=== PATIENT | male | born 1950 | race Caucasian/White ===

== ENCOUNTER 2016-07-13 18:18 | Emergency (ER) | payer OTHER ==
[~2016-07-13] VITALS: Wt 86.2 kg
[~2016-07-13 18:18] MED LIST: ALLOPURINOL100 MG PO; APRESOLINE25 MG PO; BAYER ASPIRIN C81 MG PO; CARDIZEM CD300 MG PO; CARTIA XT300 MG PO; DIOVAN/HCT 12.51 TAB PO; FENOFIBRATE145 M1 PO; HYTRIN5 M1 PO; LOPID600 MG PO; METFORMIN500 MG PO; PRAVACHOL20 MG PO; PRILOSEC20 MG PO; TAMIFLU 75MG CA75 MG PO
[2016-07-13] MEDS ORDERED: METFORMIN1000 MG PO (18:42)
[2016-07-13] MEDS ORDERED: AMOXICILLIN500 M2 PO (19:59)
[2016-07-13] MEDS ORDERED: ZYRTEC10 MG PO (19:59)
[2016-07-13] MEDS ORDERED: FLONASE ALLERG9.9 ML NS (19:59)
== END 2016-07-14 01:07 | disposition home or self-care (01) ==
LOC: ED 18:18
DX: J06.9 Acute upper respiratory infection, unspecified (principal); Z79.899 Other long term (current) drug therapy; Z79.82 Long term (current) use of aspirin

== ENCOUNTER 2016-07-16 00:55 | Emergency (ER) | payer OTHER ==
[~2016-07-16] VITALS: Ht 167.6 cm; Wt 86.2 kg
[~2016-07-16 00:55] MED LIST changes: +AMOXICILLIN500 M2 PO; +FLONASE ALLERG9.9 ML NS; +METFORMIN1000 MG PO; +ZYRTEC10 MG PO
[2016-07-16] MEDS ORDERED: ROBITUSSIN AC 110 ML PO (02:04)
[2016-07-16] MEDS ORDERED: PREDNISONE20 M1 PO (02:04)
== END 2016-07-16 02:46 | disposition home or self-care (01) ==
LOC: ED 00:55
DX: J40 Bronchitis, not specified as acute or chronic (principal); J32.0 Chronic maxillary sinusitis; Z79.82 Long term (current) use of aspirin; Z79.899 Other long term (current) drug therapy

== ENCOUNTER → 2016-11-24 | Outpatient (CLI) | payer OTHER ==
[~2016-11-24] MED LIST changes: +PREDNISONE20 M1 PO; +ROBITUSSIN AC 110 ML PO
[2016-11-24 10:15] LABS: BASO % 0.4 % (0.0-1.0); EOS # 0.1 10*3/uL (0.0-0.4); EOS % 2.2 % (1.0-4.0); HEMOGLOBIN 13.3 g/dl (14.0-18.0); LYMPH # 1.4 10*3/uL (1.3-4.4); LYMPH % 30.4 % (27.0-41.0); MEAN CELL VOLUME 88.2 fl (80.0-94.0); MEAN CORPUSCULAR HGB 30.1 pg (27.0-31.0); MEAN CORPUSCULAR HGB CONC 34.1 g/dl (33.0-37.0); MEAN PLATELET VOLUME 9.7 fl (9.6-12.3); MONO # 0.3 10*3/uL (0.1-1.0); MONO % 6.9 % (3.0-9.0); NEUT # 2.7 10*3/uL (2.3-7.9); NEUT % 59.9 % (47.0-73.0); PLATELET COUNT AUTOMATED 184 10*3/uL (130-400); RED BLOOD COUNT 4.42 10*6/uL (4.50-5.90); RED CELL DISTRI WIDTH 13.3 % (0-14.5); WHITE BLOOD COUNT 4.5 10*3/uL (4.8-10.8)
[2016-11-24 10:40] LABS: ALBUMIN 3.7 gm/dl (3.1-4.5); ALKALINE PHOSPHATASE 67 U/L (45-117); BILIRUBIN, TOTAL 0.3 mg/dl (0.2-1.0); BUN 23 mg/dl (7-24); CARBON DIOXIDE 24 mmol/L (21-32); CHLORIDE 111 mmol/L (98-107); CHOLESTEROL 137 mg/dL (<200); EST GLOM FILT AFRICAN AMERICAN > 60 ml/min; FREE THYROXIN INDEX/T7 3.1 (1.4-4.7); GLUCOSE 136 mg/dL (65-99); HDL CHOLESTEROL 37 mg/dl (40-60); LDL CHOLESTEROL 70 mg/dL (9-159); POTASSIUM 3.7 mmol/L (3.5-5.1); SGOT/AST 26 IU/L (3-35); SGPT/ALT 44 U/L (12-78); SODIUM 142 mmol/L (136-145); T3 UPTAKE 35 % (31-39); TOTAL PROTEIN 6.7 gm/dL (6.4-8.2); TRIGLYCERIDES 152 mg/dl (<150); VLDL CHOLESTEROL 30 mg/dL (6-40)
== END ==
LOC: LAB 09:51
PROVIDERS: Internal Medicine
DX: Z12.5 Encounter for screening for malignant neoplasm of prostate (principal); E78.2 Mixed hyperlipidemia; E03.9 Hypothyroidism, unspecified; I25.10 Atherosclerotic heart disease of native coronary artery without angina pectoris; E55.9 Vitamin D deficiency, unspecified; N40.1 Benign prostatic hyperplasia with lower urinary tract symptoms; I10 Essential (primary) hypertension

== ENCOUNTER 2017-05-05 13:59 | Emergency (ER) | payer OTHER ==
[~2017-05-05] VITALS: Ht 167.6 cm; Wt 86.2 kg
[2017-05-05] MEDS ORDERED: CYCLOBENZAPRINE10 MG PO (14:24)
[2017-05-05] MEDS ORDERED: MEDROL DOSEPAK4 MG PO (14:24)
== END 2017-05-05 14:59 | disposition home or self-care (01) ==
LOC: ED 13:59
DX: M54.31 Sciatica, right side (principal); F10.10 Alcohol abuse, uncomplicated; Z79.82 Long term (current) use of aspirin; Z79.84 Long term (current) use of oral hypoglycemic drugs; Z79.899 Other long term (current) drug therapy

== ENCOUNTER 2017-05-18 11:43 | Emergency (ER) | payer OTHER ==
[~2017-05-18] VITALS: Ht 167.6 cm; Wt 86.2 kg
[~2017-05-18 11:43] MED LIST changes: +CYCLOBENZAPRINE10 MG PO; +MEDROL DOSEPAK4 MG PO
[2017-05-18] MEDS ORDERED: PREDNISONE20 M1 PO (13:40)
== END 2017-05-18 13:57 | disposition home or self-care (01) ==
LOC: ED 11:43
DX: M54.31 Sciatica, right side (principal); Z79.82 Long term (current) use of aspirin; Z79.899 Other long term (current) drug therapy

== ENCOUNTER 2020-05-17 08:18 | Emergency (ER) | payer OTHER ==
[~2020-05-17] VITALS: Ht 167.6 cm; Wt 83.9 kg
[~2020-05-17 08:18] MED LIST changes: +PROVENTIL HFA6.7 GM INH; +TESSALON PERLE100 M1 PO
[2020-05-17 08:58] LABS: HEMATOCRIT 39.9 % (42.0-52.0); MEAN CELL VOLUME 86.4 fl (80.0-94.0); MEAN CORPUSCULAR HGB 28.8 pg (27.0-31.0); MEAN CORPUSCULAR HGB CONC 33.3 g/dl (33.0-37.0); MEAN PLATELET VOLUME 9.6 fl (9.6-12.3); PLATELET COUNT AUTOMATED 173 10*3/uL (130-400); RED BLOOD COUNT 4.62 10*6/uL (4.50-5.90); RED CELL DISTRI WIDTH 13.8 % (0-14.5); WHITE BLOOD COUNT 3.2 10*3/uL (4.8-10.8)
[2020-05-17 09:19] LABS: ACT PARTIAL THROMBO TIME 31.3 SECONDS (20.0-32.1)
[2020-05-17 09:24] LABS: ALBUMIN 3.3 gm/dl (3.1-4.5); ALKALINE PHOSPHATASE 65 U/L (45-117); BUN 15 mg/dl (7-24); CHLORIDE 107 mmol/L (98-107); CREATININE 1.22 mg/dL (0.70-1.30); POTASSIUM 3.4 mmol/L (3.5-5.1); SGOT/AST 22 IU/L (3-35); SGPT/ALT 40 U/L (12-78); SODIUM 137 mmol/L (136-145); TOTAL PROTEIN 6.5 gm/dL (6.4-8.2)
[2020-05-17 09:25] LABS: TROPONIN I 0.031 ng/ml (<0.045)
[2020-05-17 09:33] LABS: PLATELET SUFFICIENCY NORMAL (NORMAL); TOTAL CELLS COUNTED 100 #CELLS
[2020-05-17 10:22] LABS: BILIRUBIN Negative (Negative); BLOOD Negative (Negative); CLARITY Clear (Clear); COLOR Yellow (Yellow); GLUCOSE Negative (Negative); KETONE Trace (Negative); LEUKO ESTERASE Negative (Negative); NITRITE Positive (Negative); PH 6.5 (4.5-8.0); SPECIFIC GRAVITY >= 1.030 (1.001-1.030)
[2020-05-17 10:37] LABS: BACTERIA TRACE; RBC 0-2 rbc/hpf (0-2)
[2020-05-17] MEDS ORDERED: ZOFRAN4 MG PO (11:04)
== END 2020-05-17 11:14 | disposition home or self-care (01) ==
LOC: ED 08:18
PROVIDERS: Emergency Medicine
DX: U07.1 COVID-19 (principal); J12.82 Pneumonia due to coronavirus disease 2019; R30.9 Painful micturition, unspecified; E11.9 Type 2 diabetes mellitus without complications; I10 Essential (primary) hypertension; K21.9 Gastro-esophageal reflux disease without esophagitis; F17.200 Nicotine dependence, unspecified, uncomplicated; E66.9 Obesity, unspecified; Z79.899 Other long term (current) drug therapy; Z79.82 Long term (current) use of aspirin

== ENCOUNTER → 2020-06-10 | Outpatient (CLI) | payer OTHER ==
[~2020-06-10] MED LIST changes: +ZOFRAN4 MG PO
== END | disposition home or self-care (01) ==
LOC: COVID19 09:58
PROVIDERS: ATTEND Internal Medicine
DX: Z20.822 Contact with and (suspected) exposure to COVID-19 (principal)

== ENCOUNTER 2021-06-12 14:45 | Emergency (ER) | payer OTHER ==
[~2021-06-12] VITALS: Ht 167.6 cm; Wt 86.2 kg
[~2021-06-12 14:45] MED LIST changes: +BACTRIM 400-801 EACH PO
[2021-06-12] MEDS ORDERED: FLOMAX0.4 MG PO (15:01)
[2021-06-12] MEDS ORDERED: AMBIEN10 M1 PO (15:13)
[2021-06-12 16:42] LABS: BILIRUBIN Negative (Negative); BLOOD Negative (Negative); CLARITY Clear (Clear); COLOR Dark Yellow (Yellow); GLUCOSE Negative (Negative); KETONE Trace (Negative); LEUKO ESTERASE 1+ (Negative); NITRITE Negative (Negative); PH 5.5 (4.5-8.0); SPECIFIC GRAVITY 1.025 (1.001-1.030)
[2021-06-12 17:01] LABS: RBC 0-2 rbc/hpf (0-2)
[2021-06-12 17:02] LABS: BACTERIA TRACE
[2021-06-12 17:08] LABS: HEMATOCRIT 36.9 % (42.0-52.0); MEAN CELL VOLUME 86.4 fl (80.0-94.0); MEAN CORPUSCULAR HGB CONC 33.6 g/dl (33.0-37.0); MEAN PLATELET VOLUME 10.1 fl (9.6-12.3); PLATELET COUNT AUTOMATED 136 10*3/uL (130-400); RED BLOOD COUNT 4.27 10*6/uL (4.50-5.90); RED CELL DISTRI WIDTH 13.9 % (0-14.5); WHITE BLOOD COUNT 3.9 10*3/uL (4.8-10.8)
[2021-06-12 17:52] LABS: ALKALINE PHOSPHATASE 74 U/L (45-117); BUN 44 mg/dl (7-24); CHLORIDE 107 mmol/L (98-107); CREATININE 1.86 mg/dL (0.70-1.30); POTASSIUM 3.5 mmol/L (3.5-5.1); SGOT/AST 37 IU/L (3-35); SGPT/ALT 56 U/L (12-78); SODIUM 138 mmol/L (136-145); TOTAL PROTEIN 6.2 gm/dL (6.4-8.2)
[2021-06-12 18:16] LABS: MANUAL DIFF REFLEX YES
[2021-06-12 18:19] LABS: ATYPICAL LYMPHS 4 % (0-0); BASOPHILS 1 % (0-1); BURR CELLS FEW; OVALOCYTES FEW; PLATELET SUFFICIENCY NORMAL (NORMAL); TOTAL CELLS COUNTED 100 #CELLS
[2021-06-12 21:23] LABS: CREATININE 1.45 mg/dL (0.70-1.30); POTASSIUM 3.6 mmol/L (3.5-5.1)
== END 2021-06-12 21:50 | disposition home or self-care (01) ==
LOC: ED 14:45
PROVIDERS: Physician Assistant
DX: E86.0 Dehydration (principal); Z79.899 Other long term (current) drug therapy; Z79.82 Long term (current) use of aspirin

== ENCOUNTER → 2024-04-13 | Outpatient (CLI) | payer OTHER ==
[~2024-04-13] MED LIST changes: +AMBIEN10 M1 PO; +FLOMAX0.4 MG PO
[2024-04-13 13:36] LABS: ALKALINE PHOSPHATASE 81 U/L (46-116); SGPT/ALT 71 U/L (5-49); TOTAL PROTEIN 6.8 gm/dL (6.0-8.0)
== END | disposition home or self-care (01) ==
LOC: LAB 12:53
PROVIDERS: ATTEND Psychiatry & Neurology Neurology
DX: G20.A1 Parkinson's disease without dyskinesia, without mention of fluctuations (principal); I10 Essential (primary) hypertension

== ENCOUNTER 2025-01-14 19:20 | Emergency (ER) | payer OTHER ==
[~2025-01-14] VITALS: Ht 172.7 cm; Wt 93.0 kg
[~2025-01-14 19:20] MED LIST changes: +Amiodarone Hydrochloride 150 MG/3 ML VIAL IV ONE; +CALCIUM CHLORIDE 1 GM/10 ML SYR IV ONE; +DEXTROSE 50% 25 GM/50 ML SYR IV ONE; +EPINEPHrine Hydrochloride 1 MG/10 ML SYR IV ONE; +MAGNESIUM SULFATE 2 GM/50 ML IVB IV ONE; +SODIUM BICARBONATE 50 MEQ/50 ML SYR IV ONE
[2025-01-14] MEDS ORDERED: EPINEPHrine IN 0.9 % SOD CHLOR 250 ML IV SCH (19:45)
[2025-01-14] MEDS ORDERED: EPINEPHrine IN 0.9 % SOD CHLOR 250 ML IV ONE (20:05)
== END 2025-01-14 22:58 ==
LOC: ED 19:24
DX: I46.9 Cardiac arrest, cause unspecified (principal); E11.9 Type 2 diabetes mellitus without complications; Z79.899 Other long term (current) drug therapy; Z79.82 Long term (current) use of aspirin; Z79.2 Long term (current) use of antibiotics; Z79.84 Long term (current) use of oral hypoglycemic drugs